=== PATIENT | male | born 1970 | race Caucasian/White ===

== ENCOUNTER 2020-09-04 09:16 | Emergency (ER) | payer MEDICAID, OTHER ==
[~2020-09-04] VITALS: Ht 180.3 cm; Wt 145.1 kg
[2020-09-04 09:43] LABS: Basophils # (auto) 0.1 10 ^3/uL (0-0.2); Basophils % (auto) 0.8 % (0.0-2.0); Eosinophils # (auto) 0.3 10 ^3/uL (0-0.8); Eosinophils % (auto) 3.1 % (0.0-7.0); Hematocrit 42.7 % (41.0-53.0); Hemoglobin 14.1 g/dL (13.5-17.5); Lymphocytes # (auto) 2.8 10 ^3/uL (0.4-5.4); Lymphocytes % (auto) 32.1 % (10.0-50.0); Mean Corpuscular Hemoglobin 27.9 pg (28.0-32.0); Mean Corpuscular Hgb Conc. 33.2 g/dL (32.0-36.0); Mean Corpuscular Volume 84.1 fL (80.0-100.0); Monocytes # (auto) 0.5 10 ^3/uL (0-1.3); Monocytes % (auto) 5.7 % (0.0-12.0); Neutrophils # (auto) 5.1 10 ^3/uL (1.6-8.6); Neutrophils % (auto) 58.3 % (37.0-80.0); Nucleated Red Blood Cells % 0.1 %; Platelet Count (auto) 267 10^3/uL (140-450); Red Blood Cells 5.07 10^6/uL (4.5-5.90); Red Cell Distribution Width 14.6 % (11.8-14.3); White Blood Cell 8.7 10^3/uL (4.4-10.8)
[2020-09-04 10:03] LABS: Albumin 3.9 g/dL (3.4-5.0); Anion Gap 7 (5-15); Blood Urea Nitrogen 14 mg/dL (7-18); Calcium 8.8 mg/dL (8.5-10.1); Carbon Dioxide 26 mmol/L (21-32); Chloride 107 mmol/L (98-107); Glucose 116 mg/dL (74-106); Magnesium 2.3 mg/dL (1.6-2.6); Potassium 3.5 mmol/L (3.5-5.1); Sodium 140 mmol/L (136-145)
[2020-09-04 10:11] LABS: Alanine Aminotransferase 39 U/L (16-61); Alkaline Phosphatase 77 U/L (45-117); Aspartate Aminotransferase 20 U/L (15-37); BUN/Creatinine Ratio 13.6; Bilirubin, Total 0.7 mg/dL (0.2-1.0); GFR African American 98 mL/min; GFR Non-African American 81 mL/min; Total Protein 7.4 g/dL (6.4-8.2)
[2020-09-04 11:58] VITALS: BP 169/101
== END 2020-09-04 12:01 | disposition home or self-care (01) ==
LOC: ER 09:16
DX: R07.89 Other chest pain (principal); E11.9 Type 2 diabetes mellitus without complications; E78.00 Pure hypercholesterolemia, unspecified; I10 Essential (primary) hypertension; Z90.49 Acquired absence of other specified parts of digestive tract
CPT/HCPCS: 36415; 71046; 80053; 83735; 84484; 85025; 93005

== ENCOUNTER 2023-05-12 02:30 | Inpatient (IN) | payer MEDICAID ==
[~2023-05-12] VITALS: Ht 188 cm; Wt 139.0 kg
[2023-05-12 03:35] LABS: Basophils # (auto) 0.1 10 ^3/uL (0-0.2); Basophils % (auto) 0.5 % (0.0-2.0); Eosinophils # (auto) 0.2 10 ^3/uL (0-0.8); Eosinophils % (auto) 1.5 % (0.0-7.0); Hematocrit 39.3 % (41.0-53.0); Hemoglobin 13.2 g/dL (13.5-17.5); Lymphocytes # (auto) 2.2 10 ^3/uL (0.4-5.4); Lymphocytes % (auto) 17.6 % (10.0-50.0); Mean Corpuscular Hemoglobin 28.1 pg (28.0-32.0); Mean Corpuscular Hgb Conc. 33.7 g/dL (32.0-36.0); Mean Corpuscular Volume 83.5 fL (80.0-100.0); Monocytes # (auto) 0.8 10 ^3/uL (0-1.3); Monocytes % (auto) 6.6 % (0.0-12.0); Neutrophils # (auto) 9.2 10 ^3/uL (1.6-8.6); Neutrophils % (auto) 73.8 % (37.0-80.0); Red Cell Distribution Width 14.4 % (11.8-14.3); White Blood Cell 12.4 10^3/uL (4.4-10.8)
[2023-05-12 03:47] LABS: Albumin 3.8 g/dL (3.4-5.0); BUN/Creatinine Ratio 16.8 (10.0-20.0); Calcium 8.8 mg/dL (8.5-10.1); Potassium 3.2 mmol/L (3.5-5.1)
[2023-05-12 03:50] LABS: Bilirubin, Total 0.8 mg/dL (0.2-1.0); Total Protein 7.2 g/dL (6.4-8.2)
[2023-05-12] MEDS ORDERED: TAMSULOSIN HYDROCHLORIDE 0.4 MG CAP PO ONE (05:00)
[2023-05-12] MEDS ORDERED: ONDANSETRON HCL 4 MG/2 ML VIAL IV ONE (05:00)
[2023-05-12] MEDS ORDERED: HYDROmorphone HCL 2 MG/ML VL/or syr IV ONE (05:00)
[2023-05-12] MEDS ORDERED: SODIUM CHLORIDE 0.9% 1,000 ML IV ONE (05:00)
[2023-05-12] MEDS ORDERED: cefTRIAXone 1GM/50ML D5W 50 ML IV ONE (05:00)
[2023-05-12] MEDS ORDERED: OXYCODONE W/ ACETAMINOPHEN 5/325MG TABLET PO ONE (05:30)
[2023-05-12] MEDS ORDERED: ONDANSETRON HCL 4 MG/2 ML VIAL IV PRN (06:30)
[2023-05-12] MEDS ORDERED: ACETAMINOPHEN 325 MG TAB PO PRN (06:30)
[2023-05-12] MEDS ORDERED: MORPHINE SULFATE INJ 2 MG/ml SYRG IV PRN (06:30)
[2023-05-12] MEDS ORDERED: DEXTROSE (50%) 50ML SYRG IV PRN (06:30)
[2023-05-12 08:05] LABS: Urine Bacteria NONE SEEN /hpf (None Seen); Urine Blood 3+ /uL (Negative); Urine Budding Yeast LOADED /hpf (None Seen); Urine Hyaline Cast FEW /lpf (0 - 2); Urine Mucus FEW (None Seen); Urine Specific Gravity 1.019 (1.001-1.035); Urine WBC 14 /hpf (0 - 3)
[2023-05-12] MEDS: InsuLIN REG 1unit/0.01ml Soln (100units/ml) SC SCH ×4 (08:17→23:37)
[2023-05-12] MEDS: ACCU-CHEK COMFORT CURVE STRIP VI SCH ×4 (08:17→23:32)
[2023-05-12] MEDS: PANTOPRAZOLE 40 MG TAB PO SCH (09:44)
[2023-05-12] MEDS: HYDROcodone-ACET 5/325MG TAB PO PRN ×2 (09:44→23:37)
[2023-05-12] MEDS: ATENOLOL 50 MG TAB PO SCH ×2 (09:44→23:33)
[2023-05-12] MEDS ORDERED: LOSARTAN POTASSIUM 50 MG TAB PO SCH (10:00)
[2023-05-12] MEDS ORDERED: POTASSIUM CHL 20 Meq TABLET PO ONE (13:45)
[2023-05-12] MEDS ORDERED: hydrALAZINE HCL 20 MG/ML VL IV PRN (13:45)
[2023-05-12 17:18] LABS: INR 1.03 (0.9-1.15)
[2023-05-12] MEDS: SODIUM CHLORIDE 0.9% 1,000 ML IV SCH ×2 (18:04→23:33)
[2023-05-12] MEDS: TAMSULOSIN HYDROCHLORIDE 0.4 MG CAP PO SCH (18:05)
[2023-05-12 22:00] VITALS: BP 136/92
[2023-05-12] MEDS: ATORVASTATIN 20 MG TAB PO SCH (23:31)
[2023-05-12 23:44] VITALS: BP 136/92
[2023-05-12] MEDS ORDERED: ASPI-325 PO (23:56)
[2023-05-12] MEDS ORDERED: METF-372 PO (23:56)
[2023-05-12] MEDS ORDERED: SPIR25TA8 PO (23:56)
[2023-05-12] MEDS ORDERED: SEMA4INJ SC (23:56)
[2023-05-12] MEDS ORDERED: AMLO1TAB23 PO (23:56)
[2023-05-12] MEDS ORDERED: GLUC-149 XX (23:56)
[2023-05-12] MEDS ORDERED: HYDR25TA5 PO (23:56)
[2023-05-12] MEDS ORDERED: ERGO1CAP12 PO (23:56)
[2023-05-12] MEDS ORDERED: ATOR40TA52 PO (23:56)
[2023-05-12] MEDS ORDERED: ATEN50TA PO (23:56)
[2023-05-12] MEDS ORDERED: TAMS0.4C36 PO (23:56)
[2023-05-12] MEDS ORDERED: LOSA50TA46 PO (23:56)
[2023-05-13 05:00] VITALS: BP 106/66
[2023-05-13 06:11] LABS: Potassium 3.4 mmol/L (3.5-5.1)
[2023-05-13 06:16] LABS: Basophils # (auto) 0 10 ^3/uL (0-0.2); Basophils % (auto) 0.5 % (0.0-2.0); Eosinophils # (auto) 0.2 10 ^3/uL (0-0.8); Eosinophils % (auto) 1.8 % (0.0-7.0); Hematocrit 35.6 % (41.0-53.0); Hemoglobin 11.9 g/dL (13.5-17.5); Lymphocytes # (auto) 2.2 10 ^3/uL (0.4-5.4); Lymphocytes % (auto) 24.5 % (10.0-50.0); Mean Corpuscular Hemoglobin 28.1 pg (28.0-32.0); Mean Corpuscular Hgb Conc. 33.5 g/dL (32.0-36.0); Mean Corpuscular Volume 83.9 fL (80.0-100.0); Monocytes # (auto) 0.8 10 ^3/uL (0-1.3); Monocytes % (auto) 8.7 % (0.0-12.0); Neutrophils # (auto) 5.8 10 ^3/uL (1.6-8.6); Neutrophils % (auto) 64.5 % (37.0-80.0); Nucleated Red Blood Cells % 0.1 %; Red Blood Cells 4.25 10^6/uL (4.5-5.90); Red Cell Distribution Width 14.7 % (11.8-14.3)
[2023-05-13 06:18] LABS: Albumin 3.2 g/dL (3.4-5.0); BUN/Creatinine Ratio 12.6 (10.0-20.0); Calcium 7.9 mg/dL (8.5-10.1)
[2023-05-13 06:37] LABS: Bilirubin, Total 0.9 mg/dL (0.2-1.0); Total Protein 6.3 g/dL (6.4-8.2)
[2023-05-13] MEDS: InsuLIN REG 1unit/0.01ml Soln (100units/ml) SC SCH ×4 (06:47→22:00)
[2023-05-13] MEDS: ACCU-CHEK COMFORT CURVE STRIP VI SCH ×4 (06:47→22:12)
[2023-05-13] MEDS: SODIUM CHLORIDE 0.9% 1,000 ML IV SCH ×3 (06:47→22:13)
[2023-05-13 08:00] VITALS: BP 128/85
[2023-05-13] MEDS: PANTOPRAZOLE 40 MG TAB PO SCH (09:16)
[2023-05-13] MEDS: cefTRIAXone 1GM/50ML D5W 50 ML IV SCH (09:18)
[2023-05-13] MEDS: ATENOLOL 50 MG TAB PO SCH ×2 (09:19→22:12)
[2023-05-13 12:00] VITALS: BP 126/85
[2023-05-13] MEDS: FLUCONAZOLE 200MG/100ML 100 ML IV SCH (12:00)
[2023-05-13 16:00] VITALS: BP 114/78
[2023-05-13] MEDS: TAMSULOSIN HYDROCHLORIDE 0.4 MG CAP PO SCH (17:38)
[2023-05-13] MEDS: ATORVASTATIN 20 MG TAB PO SCH (22:11)
[2023-05-13 22:30] VITALS: BP 141/89
[2023-05-14] VITALS (7 sets, daily range): BP systolic 114–142; BP diastolic 71–93
[2023-05-14 05:54] LABS: Basophils # (auto) 0.1 10 ^3/uL (0-0.2); Basophils % (auto) 0.8 % (0.0-2.0); Eosinophils # (auto) 0.2 10 ^3/uL (0-0.8); Eosinophils % (auto) 2.8 % (0.0-7.0); Hematocrit 37.1 % (41.0-53.0); Hemoglobin 12.4 g/dL (13.5-17.5); Lymphocytes # (auto) 2.3 10 ^3/uL (0.4-5.4); Lymphocytes % (auto) 29.8 % (10.0-50.0); Mean Corpuscular Hemoglobin 28.4 pg (28.0-32.0); Mean Corpuscular Hgb Conc. 33.5 g/dL (32.0-36.0); Mean Corpuscular Volume 84.9 fL (80.0-100.0); Monocytes # (auto) 0.6 10 ^3/uL (0-1.3); Monocytes % (auto) 7.6 % (0.0-12.0); Neutrophils # (auto) 4.5 10 ^3/uL (1.6-8.6); Nucleated Red Blood Cells % 0.1 %; Red Blood Cells 4.38 10^6/uL (4.5-5.90); Red Cell Distribution Width 14.8 % (11.8-14.3); White Blood Cell 7.6 10^3/uL (4.4-10.8)
[2023-05-14 06:05] LABS: Calcium 8.3 mg/dL (8.5-10.1); Potassium 3.3 mmol/L (3.5-5.1)
[2023-05-14] MEDS: ACCU-CHEK COMFORT CURVE STRIP VI SCH ×4 (06:08→21:18)
[2023-05-14] MEDS: SODIUM CHLORIDE 0.9% 1,000 ML IV SCH ×3 (06:08→17:59)
[2023-05-14] MEDS: InsuLIN REG 1unit/0.01ml Soln (100units/ml) SC SCH ×4 (06:09→21:18)
[2023-05-14] MEDS: cefTRIAXone 1GM/50ML D5W 50 ML IV SCH (09:40)
[2023-05-14] MEDS: PANTOPRAZOLE 40 MG TAB PO SCH (09:43)
[2023-05-14] MEDS: ATENOLOL 50 MG TAB PO SCH ×2 (09:43→21:11)
[2023-05-14] MEDS: FLUCONAZOLE 200MG/100ML 100 ML IV SCH (10:00)
[2023-05-14] MEDS ORDERED: LIDOCAINE 2%HCL (LOCAL ANESTH.) INJ 20ML MDV ONE (11:26)
[2023-05-14] MEDS ORDERED: IODIXANOL 320MG/ML 100ML BTL IV ONE (11:26)
[2023-05-14] MEDS ORDERED: fentaNYL CITRATE 100 MCG/2 ML VL ONE (11:40)
[2023-05-14] MEDS ORDERED: MIDAZOLAM HCL 2MG/2ML 2ml VIAL (1mg/ml) ONE (11:40)
[2023-05-14] MEDS ORDERED: POTASSIUM CHL 20 Meq TABLET PO ONE (16:30)
[2023-05-14] MEDS: TAMSULOSIN HYDROCHLORIDE 0.4 MG CAP PO SCH (18:00)
[2023-05-14] MEDS: ATORVASTATIN 20 MG TAB PO SCH (21:10)
[2023-05-15 05:00] VITALS: BP 136/93
[2023-05-15] MEDS: InsuLIN REG 1unit/0.01ml Soln (100units/ml) SC SCH ×4 (07:00→22:18)
[2023-05-15] MEDS: ACCU-CHEK COMFORT CURVE STRIP VI SCH ×4 (07:14→22:18)
[2023-05-15 09:00] VITALS: BP 140/95
[2023-05-15] MEDS: cefTRIAXone 1GM/50ML D5W 50 ML IV SCH (09:09)
[2023-05-15] MEDS: ATENOLOL 50 MG TAB PO SCH ×2 (09:09→22:21)
[2023-05-15] MEDS: PANTOPRAZOLE 40 MG TAB PO SCH (09:09)
[2023-05-15] MEDS: FLUCONAZOLE 200MG/100ML 100 ML IV SCH (11:10)
[2023-05-15] MEDS: SODIUM CHLORIDE 0.9% 1,000 ML IV SCH (11:12)
[2023-05-15] MEDS ORDERED: amLODIPine BESYLATE 5 MG TAB PO ONE (11:45)
[2023-05-15] MEDS ORDERED: SPIRONOLACTONE 25 MG TAB PO ONE (11:45)
[2023-05-15] MEDS ORDERED: HCTZ 25 MG TAB PO ONE (11:45)
[2023-05-15 13:00] VITALS: BP 148/93
[2023-05-15 17:01] VITALS: BP 133/87
[2023-05-15] MEDS: TAMSULOSIN HYDROCHLORIDE 0.4 MG CAP PO SCH (18:21)
[2023-05-15 22:00] VITALS: BP 152/96
[2023-05-15] MEDS: ATORVASTATIN 20 MG TAB PO SCH (22:21)
[2023-05-16 05:00] VITALS: BP 135/91
[2023-05-16] MEDS: ACCU-CHEK COMFORT CURVE STRIP VI SCH ×4 (06:06→21:45)
[2023-05-16] MEDS: InsuLIN REG 1unit/0.01ml Soln (100units/ml) SC SCH ×4 (06:07→21:45)
[2023-05-16 06:33] LABS: Potassium 3.6 mmol/L (3.5-5.1)
[2023-05-16 06:40] LABS: BUN/Creatinine Ratio 14.1 (10.0-20.0); Calcium 9.1 mg/dL (8.5-10.1)
[2023-05-16] MEDS: PANTOPRAZOLE 40 MG TAB PO SCH (08:58)
[2023-05-16] MEDS: HCTZ 25 MG TAB PO SCH (08:58)
[2023-05-16] MEDS: SPIRONOLACTONE 25 MG TAB PO SCH (08:58)
[2023-05-16] MEDS: ATENOLOL 50 MG TAB PO SCH ×2 (08:59→21:43)
[2023-05-16] MEDS: amLODIPine BESYLATE 5 MG TAB PO SCH (08:59)
[2023-05-16 09:00] VITALS: BP 129/78
[2023-05-16] MEDS: cefTRIAXone 1GM/50ML D5W 50 ML IV SCH (09:00)
[2023-05-16] MEDS: FLUCONAZOLE 200MG/100ML 100 ML IV SCH (10:00)
[2023-05-16 13:00] VITALS: BP 146/97
[2023-05-16 17:00] VITALS: BP 141/90
[2023-05-16] MEDS: TAMSULOSIN HYDROCHLORIDE 0.4 MG CAP PO SCH (17:16)
[2023-05-16] MEDS: ATORVASTATIN 20 MG TAB PO SCH (21:42)
[2023-05-16 22:00] VITALS: BP 140/90
[2023-05-16 22:14] LABS: Urine Bacteria FEW /hpf (None Seen); Urine Blood 3+ /uL (Negative); Urine Specific Gravity 1.006 (1.001-1.035); Urine WBC 1 /hpf (0 - 3)
[2023-05-17 05:00] VITALS: BP 130/88
[2023-05-17] MEDS: ACCU-CHEK COMFORT CURVE STRIP VI SCH ×4 (05:39→22:06)
[2023-05-17] MEDS: InsuLIN REG 1unit/0.01ml Soln (100units/ml) SC SCH ×4 (05:39→22:09)
[2023-05-17 05:50] LABS: INR 1.03 (0.9-1.15); Partial Thromboplastin Time 23.5 SEC (24.5-34.5)
[2023-05-17] MEDS: ATENOLOL 50 MG TAB PO SCH ×2 (08:50→22:21)
[2023-05-17] MEDS: amLODIPine BESYLATE 5 MG TAB PO SCH (08:50)
[2023-05-17] MEDS: SPIRONOLACTONE 25 MG TAB PO SCH (08:50)
[2023-05-17] MEDS: PANTOPRAZOLE 40 MG TAB PO SCH (08:50)
[2023-05-17] MEDS: HCTZ 25 MG TAB PO SCH (08:51)
[2023-05-17] MEDS: cefTRIAXone 1GM/50ML D5W 50 ML IV SCH (08:51)
[2023-05-17 09:00] VITALS: BP 149/96
[2023-05-17] MEDS: FLUCONAZOLE 200MG/100ML 100 ML IV SCH (12:06)
[2023-05-17] MEDS ORDERED: IOHEXOL 300 MG/ML 100ML BOTTLE IJ ONE (12:56)
[2023-05-17 13:00] VITALS: BP 143/98
[2023-05-17] MEDS ORDERED: SUGAMMADEX 200mg/2ml Vial (100MG/ML) IV ONE (15:10)
[2023-05-17] MEDS ORDERED: ROCURONIUM 10MG/ML 10ML VIAL IV ONE (15:12)
[2023-05-17] MEDS ORDERED: GLYCOPYRROLATE 0.2 MG/ML 1ML VIAL ONE (15:12)
[2023-05-17] MEDS ORDERED: MIDAZOLAM HCL 2MG/2ML 2ml VIAL (1mg/ml) ONE (15:12)
[2023-05-17] MEDS ORDERED: LIDOCAINE 2% (LOCAL ANESTH.) PF 5ml SDV ONE (15:12)
[2023-05-17] MEDS ORDERED: ONDANSETRON HCL 4 MG/2 ML VIAL ONE (15:12)
[2023-05-17] MEDS ORDERED: fentaNYL CITRATE 100 MCG/2 ML VL ONE (15:12)
[2023-05-17] MEDS ORDERED: DexAMETHasone SOD PHOS 10MG/1ML VIAL INJ ONE (15:12)
[2023-05-17] MEDS ORDERED: KETOROLAC TROMETH 30 MG/ML 1ML VIAL ONE (15:12)
[2023-05-17] MEDS ORDERED: HYDROmorphone HCL 2 MG/ML VL/or syr ONE (15:12)
[2023-05-17] MEDS ORDERED: PROPOFOL 10 MG/ML 20 ML IV ONE (15:12)
[2023-05-17] MEDS ORDERED: ACCU-CHEK COMFORT CURVE STRIP VI ONE (17:00)
[2023-05-17] MEDS ORDERED: ONDANSETRON HCL 4 MG/2 ML VIAL IV PRN (17:00)
[2023-05-17] MEDS ORDERED: HYDROmorphone HCL 2 MG/ML VL/or syr IV PRN (17:00)
[2023-05-17] MEDS: TAMSULOSIN HYDROCHLORIDE 0.4 MG CAP PO SCH (18:21)
[2023-05-17 22:00] VITALS: BP 122/77
[2023-05-17] MEDS: ATORVASTATIN 20 MG TAB PO SCH (22:20)
[2023-05-18 05:00] VITALS: BP 123/71
[2023-05-18] MEDS: ACCU-CHEK COMFORT CURVE STRIP VI SCH ×2 (06:22→11:30)
[2023-05-18] MEDS: InsuLIN REG 1unit/0.01ml Soln (100units/ml) SC SCH ×2 (06:25→11:30)
[2023-05-18 08:00] VITALS: BP 131/77
[2023-05-18 08:10] LABS: Calcium 8.9 mg/dL (8.5-10.1); Potassium 3.8 mmol/L (3.5-5.1)
[2023-05-18] MEDS: cefTRIAXone 1GM/50ML D5W 50 ML IV SCH (09:00)
[2023-05-18] MEDS: PANTOPRAZOLE 40 MG TAB PO SCH (10:00)
[2023-05-18] MEDS: FLUCONAZOLE 200MG/100ML 100 ML IV SCH (10:00)
[2023-05-18] MEDS: HCTZ 25 MG TAB PO SCH (10:00)
[2023-05-18] MEDS: SPIRONOLACTONE 25 MG TAB PO SCH (10:00)
[2023-05-18] MEDS: ATENOLOL 50 MG TAB PO SCH (10:00)
[2023-05-18] MEDS: amLODIPine BESYLATE 5 MG TAB PO SCH (10:00)
[2023-05-18] MEDS ORDERED: CIPR-273 PO (10:39)
[2023-05-18 11:37] VITALS: BP 122/77
== END 2023-05-18 12:30 | disposition home or self-care (01) | DRG 446 ==
LOC: ER 02:30 → OVERFLOW 06:31 → CENTRAL 21:02
PROVIDERS: ADMIT Nurse Practitioner; ATTEND Internal Medicine Geriatric Medicine
PROC: 0T903ZZ Drainage of Right Kidney, Percutaneous Approach (ICD-10-PCS; 2023-05-14)
PROC: 0TC68ZZ Extirpation of Matter from Right Ureter, Via Natural or Artificial Opening Endoscopic (ICD-10-PCS; 2023-05-17)
PROC: 0T768DZ Dilation of Right Ureter with Intraluminal Device, Via Natural or Artificial Opening Endoscopic (ICD-10-PCS; 2023-05-17)
PROC: 0TP5X0Z Removal of Drainage Device from Kidney, External Approach (ICD-10-PCS; 2023-05-17)
PROC: BT1D1ZZ Fluoroscopy of Right Kidney, Ureter and Bladder using Low Osmolar Contrast (ICD-10-PCS; principal; 2023-05-17 15:16)
DX: N13.6 Pyonephrosis (principal); N17.0 Acute kidney failure with tubular necrosis; E44.1 Mild protein-calorie malnutrition; R65.10 Systemic inflammatory response syndrome (SIRS) of non-infectious origin without acute organ dysfunction; E04.1 Nontoxic single thyroid nodule; E11.9 Type 2 diabetes mellitus without complications; E66.9 Obesity, unspecified; E78.5 Hyperlipidemia, unspecified; I10 Essential (primary) hypertension; E87.6 Hypokalemia; N20.2 Calculus of kidney with calculus of ureter; Z68.39 Body mass index [BMI] 39.0-39.9, adult; Z90.49 Acquired absence of other specified parts of digestive tract
CPT/HCPCS: 36415; 71045; 71250; 74018; 74176; 74425; 76000; 76536; 76775; 76942; 80048; 80053; 81001; 82306; 82962; 83690; 83970; 84443; 85025; 85610; 85730; 86850; 86900; 86901; 96365; 96375; 96376; 99152; G0378; J0696; J1100; J1450; J1815; J1885; J2001; J2250; J2405; J2704; Q9967

== ENCOUNTER 2025-03-22 06:09 | Inpatient (IN) | payer MEDICAID ==
[~2025-03-22] VITALS: Ht 180.3 cm; Wt 127.8 kg
[~2025-03-22 06:09] MED LIST: AMLO1TAB23 PO; ASPI-325 PO; ATEN50TA PO; ATOR40TA52 PO; CIPR-273 PO; ERGO1CAP12 PO; GLUC-149 XX; HYDR25TA5 PO; LOSA-534 PO; METF-372 PO; SEMA4INJ SC; SPIR25TA8 PO; TAMS0.4C39 PO
--- NOTE | 2025-03-22 06:49 | ED.PDOC ---
History of Present Illness HPI Comments 54-year-old male presents to the ER with prior history of diabetes, high lipids, hypertension, kidney stones; surgical history of cholecystectomy and the chief complaint of flank pain. Patient reports on having right lower quadrant pain which radiates to the right flank since 10:30 p.m. last night, associated with N/V. Patient notes that he recently saw Dr. Li(30 days ago), with them stating "your kidney stone free". Denies chills, fever, /D, SOB, CP. No other associated symptoms, modifiers, recent injuries or sick contacts present at this time. Chief Complaint: Flank Pain Time Seen by MD: 06:35 Reviewed Notes: Nurses Notes, Medications, Allergies Allergies: Coded Allergies: Penicillins (Verified Allergy, Unknown, 05/17/23) Per patient Home Meds Active Scripts Ciprofloxacin Hcl (Cipro) 250 Mg Tab, 250 MG PO BID, #10 TAB Prov:LICO WAITE MD 05/18/23 Reported Medications Glucose Blood (Freestyle Lite Test Strip) Lite Jess, XX 05/12/23 Metformin Hydrochloride (Metformin Hcl) 1,000 Mg Tab, 1 TAB PO QDAC 05/12/23 Aspirin (Aspirin Low Dose) 81 Mg Tab, 1 TAB PO DAILY 05/12/23 Ergocalciferol (Vitamin D) 50,000 Unit Cap, 1 CAP PO QWEEKLY 05/12/23 Atorvastatin Calcium (ATORVASTATIN CALCIUM) 40 Mg Tab, 1 TAB PO DAILY 05/12/23 Hctz (Hydrochlorothiazide) 25 Mg Tab, 1 TAB PO DAILY 05/12/23 Spironolactone (Spironolactone) 25 Mg Tab, 1 TAB PO DAILY 05/12/23 Losartan Potassium (Losartan Potassium) 50 Mg Tab, 1 TAB PO BID 05/12/23 Amlodipine Besylate (Amlodipine Besylate) 10 Mg Tab, 1 TAB PO DAILY 05/12/23 Semaglutide (Ozempic) 4 Mg/3 Ml Inj, SC QWEEKLY 05/12/23 Atenolol (Atenolol) 50 Mg Tab, 1 TAB PO BID 05/12/23 Tamsulosin Hcl (Tamsulosin Hcl) 0.4 Mg Cap, 1 CAP PO DAILY 05/12/23 Information Source: Patient Mode of Arrival: Ambulatory Severity: Moderate Timing: Hours Duration: Since onset, Hours Prehospital treatment: None Past Medical History PAST MEDICAL HISTORY: DM, High Lipids, HTN, Kidney Stones Surgical History: Cholecystectomy Family History Family History: Reviewed,noncontributory to illness, Unknown Social History Smoker: Non-Smoker Alcohol: Unknown Drugs: Denies Drug Use Lives In: Home Constitutional: denies: chills, diaphoresis, fatigue, fever, malaise, sweats, weakness, others EENTM: denies: blurred vision, double vision, ear bleeding, ear discharge, ear drainage, ear pain, ear ringing, eye pain, eye redness, hearing loss, mouth pain, mouth swelling, nasal discharge, nose bleeding, nose congestion, nose pain, photophobia, tearing, throat pain, throat swelling, voice changes, others Respiratory: denies: cough, hemoptysis, orthopnea, SOB at rest, shortness of breath, SOB with excertion, stridor, wheezing, others Cardiovascular: denies: chest pain, dizzy spells, diaphoresis, Dyspnea on exertion, edema, irregular heart beat, left arm pain, lightheadedness, palpitations, PND, syncope, others Gastrointestinal: reports: abdominal pain, nausea, vomiting; denies: abdomen distended, blood streaked bowels, constipated, diarrhea, dysphagia, difficulty swallowing, hematemesis, melena, poor appetite, poor fluid intake, rectal bleeding, rectal pain, others Genitourinary: reports: flank pain; denies: burning, dysuria, frequency, hematuria, incontinence, penile discharge, penile sore, pain, testicle pain, testicle swelling, urgency, others Neurological: denies: dizziness, fainting, headache, left sided numbness, left sided weakness, numbness, paresthesia, pre-existing deficit, right sided numbness, right sided weakness, seizure, speech problems, tingling, tremors, weakness, others Musculoskeletal: denies: back pain, gout, joint pain, joint swelling, muscle pain, muscle stiffness, neck pain, others Integumetry: denies: bruises, change in color, change in hair/nails, dryness, laceration, lesions, lumps, rash, wounds, others Allergic/Immunocompromised: denies: Difficulty Healing, Frequent Infections, Hives, Itching, others Hematologic/Lymphatic: denies: anemia, blood clots, easy bleeding, easy bruising, swollen glands, others Endocrine: denies: excessive hunger, excessive sweating, excessive thirst, excessive urination, flushing, intolerance to cold, intolerance to heat, unexplained weight gain, unexplained weight loss, others Psychiatric: denies: anxiety, bipolar disorder, depression, hopeless, panic disorder, schizophrenia, sleepless, suicidal, others All Other Systems: Reviewed and Negative Physical Exam General Appearance: No Apparent Distress, Normal HEENT: Normal ENT Inspection, Pharynx Normal, TMs Normal Neck: Full Range of Motion, Non-Tender, Normal, Normal Inspection Respiratory: Chest Non-Tender, Lungs Clear, No Accessory Muscle Use, No Respiratory Distress, Normal Breath Sounds Cardiovascular: No Edema, No JVD, No Murmur, No Gallop, Normal Peripheral Pulses, Regular Rate/Rhythm Breast Exam: Deferred Gastrointestinal: No Organomegaly, Non Tender, No Pulsatile Mass, Normal Bowel Sounds, Soft Genitalia: Deferred Pelvic: Deferred Rectal: Deferred Extremities: No calf tenderness, Normal capillary refill, Normal inspection, Normal range of motion, Non-tender, No pedal edema Musculoskeletal : Apperance: Normal Neurologic: Alert, medical coordinator pesticide use II-XII nml as Tested, No Motor Deficits, Normal Affect, Normal Mood, No Sensory Deficits Cerebellar Function: Normal Reflexes: Normal Skin: Dry, Normal Color, Warm Lymphatic: No Adenopathy Was a procedure done? Was a procedure done?: No Differential Dx Considerations may include: Acute cystitis, pyelonephritis, urolithiasis, renal colic X-Ray, Labs, Meds, VS Vital Signs Date Time Temp Pulse Resp B/P (MAP) Pulse Ox O2 Delivery O2 Flow Rate FiO2 03/22/25 08:47 97.9 03/22/25 07:47 97.6 03/22/25 07:35 99 16 95 Room Air 03/22/25 07:35 97.6 99 16 145/94 (111) 95 97.6 03/22/25 06:24 98.2 92 16 149/101 (117) 95 98.2 Lab Test 03/22/25 06:56 Range/Units White Blood Count 11.3 H 4.4-10.8 10^3/uL Red Blood Count 5.27 4.5-5.90 10^6/uL Hemoglobin 14.9 13.5-17.5 g/dL Hematocrit 43.9 41.0-53.0 % Mean Corpuscular Volume 83.3 80.0-100.0 fL Mean Corpuscular Hemoglobin 28.2 28.0-32.0 pg Mean Corpuscular Hemoglobin Concent 33.9 32.0-36.0 g/dL Red Cell Distribution Width 14.2 11.8-14.3 % Platelet Count 308 140-450 10^3/uL Mean Platelet Volume 7.9 6.9-10.8 fL Neutrophils (%) (Auto) 73.3 37.0-80.0 % Lymphocytes (%) (Auto) 16.6 10.0-50.0 % Monocytes (%) (Auto) 7.2 0.0-12.0 % Eosinophils (%) (Auto) 2.5 0.0-7.0 % Basophils (%) (Auto) 0.4 0.0-2.0 % Neutrophils # (Auto) 8.3 1.6-8.6 10 ^3/uL Lymphocytes # (Auto) 1.9 0.4-5.4 10 ^3/uL Monocytes # (Auto) 0.8 0-1.3 10 ^3/uL Eosinophils # (Auto) 0.3 0-0.8 10 ^3/uL Basophils # (Auto) 0 0-0.2 10 ^3/uL Nucleated Red Blood Cells 0.0 % Sodium Level 138 136-145 mmol/L Potassium Level 3.4 L 3.5-5.1 mmol/L Chloride Level 102 98-107 mmol/L Carbon Dioxide Level 22 20-31 mmol/L Anion Gap 14 5-15 Blood Urea Nitrogen 18 9-23 mg/dL Creatinine 1.23 0.700-1.30 mg/dL Glomerular Filtration Rate Calc 69 >90 mL/min BUN/Creatinine Ratio 14.6 10.0-20.0 Serum Glucose 163 H 74-106 mg/dL Calcium Level 9.7 8.7-10.4 mg/dL Current Medications Medications (Trade) Dose Ordered Sig/Anni Route Start Time Stop Time Status Last Admin Ondansetron HCl (Zofran) 4 mg ONCE ONCE IV 03/22/25 06:45 03/22/25 06:46 DC 03/22/25 07:58 Acetaminophen (Tylenol Tablet) 650 mg ONCE ONCE PO 03/22/25 06:45 03/22/25 06:46 DC 03/22/25 07:47 Ketorolac Tromethamine (Toradol Injection) 15 mg ONCE ONCE IV 03/22/25 06:45 03/22/25 06:46 DC 03/22/25 07:58 Sodium Chloride 1,000 ml @ 1,000 mls/hr Q1H ONCE IV 03/22/25 06:45 03/22/25 07:44 DC 03/22/25 07:57 Tamsulosin HCl (Flomax) 0.4 mg ONCE ONCE PO 03/22/25 06:45 03/22/25 06:46 DC 03/22/25 07:47 [place] [address] Ph: [phone] DIAGNOSTIC IMAGING Diagnostic Imaging Report : [id number] Signed PATIENT: JESSI RUSSO ACCT: [id number] UNIT: [id number] : 1970 LOC: ER ROOM / BED: / AGE / SEX: 54 / M ADM STATUS: REG ER SERVICE ORDERING PHYSICIAN: YAMINI STOCKTON MD PROCEDURE(s): ABPL - CT AB PEL WO CON-NO ORAL OR IV REASON: right flank pain ORDER NUMBER(s): [id number], ACCESSION NUMBER(s): [id number] EXAM: CT Abdomen and Pelvis Without Intravenous Contrast CLINICAL INDICATION: right flank pain TECHNIQUE: Axial computed tomography images of the abdomen and pelvis without intravenous contrast. This CT exam was performed using one or more of the following dose reduction techniques: automated exposure control, adjustment of the mA and/or kV according to patient size, and/or use of iterative reconstruction technique. CONTRAST: RADIATION DOSE: CTDIvol = 26.18 mGy, DLP = 1413.36 mGy-cm COMPARISON: CT CHST AB PEL WO CON-NO IV/ORAL on DOS: 05/12/23 FINDINGS: LUNG BASES: Unremarkable. No mass. No consolidation. MEDIASTINUM: Small esophageal hiatal hernia. ABDOMEN: LIVER: Fatty infiltration of the liver. GALLBLADDER AND BILE DUCTS: Cholecystectomy. No ductal dilation. PANCREAS: Unremarkable. No ductal dilation. SPLEEN: Splenic cysts. ADRENALS: Unremarkable. No mass. KIDNEYS AND URETERS: 4 mm obstructing calculus at the right mid ureter resulting in moderate hydroureteronephrosis. Punctate left nephrolithiasis with out hydronephrosis. STOMACH AND BOWEL: Unremarkable. No obstruction. No mucosal thickening. PELVIS: APPENDIX: No findings to suggest acute appendicitis. BLADDER: Unremarkable. No stones. REPRODUCTIVE: Unremarkable as visualized. ABDOMEN and PELVIS: INTRAPERITONEAL SPACE: Unremarkable. No free air. No significant fluid collection. BONES/JOINTS: No acute fracture. No dislocation. SOFT TISSUES: Inguinal hernias, bilaterally. VASCULATURE: Unremarkable. No abdominal aortic aneurysm. LYMPH NODES: Unremarkable. No enlarged lymph nodes. OTHER FINDINGS: . . IMPRESSION: 1. 4 mm obstructing calculus at the right mid ureter resulting in moderate hydroureteronephrosis. 2. Small esophageal hiatal hernia. 3. Punctate left nephrolithiasis without hydronephrosis. 4. Inguinal hernias, bilaterally. Time of 1ST Reevaluation: 07:05 Reevaluation 1ST: Unchanged Patient Education/Counseling: Diagnosis, Treatment, Prognosis Family Education/Counseling: No Family Present Departure 1 Departure Time of Disposition: 08:59 (Patient presented with abdominal pain that was concerning for possible appendicits, gastritis, cholecystitis, colitis, gastroenteritis, sbo, or orther possible surgical emergency. Data: 1. I ordered and reviewed the result of at least 3 labs including a CBC, BMP, and Urinalysis. 2. I independently interpreted the following tests: CT Abdoment and Pelvis is concerning for renal colic.Risk:This patient has a high risk of morbidity due to further diagnostic testing or treatment and may suffer from an acute abdominal process disorder. Workup reveals ureteral colic and patient should be admitted for further workup. and possible expert consultation. ) Impression: Primary Impression: Renal colic on right side Additional Impression: Intractable abdominal pain Disposition: 09 ADMITTED INPATIENT Admit to: Med Surg Condition: Serious Critical Care Note Critical Care Time?: Yes Critical care comment: Intractable abdominal pain Authorized and Performed by: Yamini Stockton MD Total critical care time: Approximately 37 minutes Due to a high probability of clinically significant, life threatening deterioration, the patient required my highest level of preparedness to intervene emergently and I personally spent this critical care time directly and personally managing the patient. This critical care time included obtaining a history; examining the patient; pulse oximetry; ordering and review of studies; arranging urgent treatment with development of a management plan; evaluation of patient's response to treatment; frequent reassessment; and, discussions with other providers. This critical care time was performed to assess and manage the high probability of imminent, life-threatening deterioration that could result in multi-organ failure. It was exclusive of separately billable procedures and treating other patients and teaching time. Please see my other sections and the rest of the note for further information on patient assessment and treatment. Stability Stability form required: No I personally scribed for YAMINI STOCKTON MD ([email or web address]) on 03/22/25 at 06:48. Electronically submitted by Petar Sadler ([employer]). I personally scribed for YAMINI STOCKTON MD ([email or web address]) on 03/22/25 at 08:21. Electronically submitted by Petar Sadler ([employer]). YAMINI STOCKTON MD March 22, 2025 06:48
[2025-03-22 07:06] LABS: Basophils # (auto) 0 10 ^3/uL (0-0.2); Basophils % (auto) 0.4 % (0.0-2.0); Eosinophils # (auto) 0.3 10 ^3/uL (0-0.8); Eosinophils % (auto) 2.5 % (0.0-7.0); Hematocrit 43.9 % (41.0-53.0); Hemoglobin 14.9 g/dL (13.5-17.5); Lymphocytes # (auto) 1.9 10 ^3/uL (0.4-5.4); Lymphocytes % (auto) 16.6 % (10.0-50.0); Mean Corpuscular Hemoglobin 28.2 pg (28.0-32.0); Mean Corpuscular Hgb Conc. 33.9 g/dL (32.0-36.0); Mean Corpuscular Volume 83.3 fL (80.0-100.0); Monocytes # (auto) 0.8 10 ^3/uL (0-1.3); Monocytes % (auto) 7.2 % (0.0-12.0); Neutrophils # (auto) 8.3 10 ^3/uL (1.6-8.6); Neutrophils % (auto) 73.3 % (37.0-80.0); Platelet Count (auto) 308 10^3/uL (140-450); Red Blood Cells 5.27 10^6/uL (4.5-5.90); Red Cell Distribution Width 14.2 % (11.8-14.3); White Blood Cell 11.3 10^3/uL (4.4-10.8)
[2025-03-22 07:22] LABS: Chloride 102 mmol/L (98-107); Sodium 138 mmol/L (136-145)
[2025-03-22 07:23] LABS: Anion Gap 14 (5-15); Calcium 9.7 mg/dL (8.7-10.4); Carbon Dioxide 22 mmol/L (20-31); Potassium 3.4 mmol/L (3.5-5.1)
[2025-03-22 07:28] LABS: BUN/Creatinine Ratio 14.6 (10.0-20.0); Blood Urea Nitrogen 18 mg/dL (9-23)
[2025-03-22 07:30] LABS: Glucose 163 mg/dL (74-106)
[2025-03-22] MEDS: ACETAMINOPHEN 325 MG TAB PO ONE (07:47)
[2025-03-22] MEDS: TAMSULOSIN HYDROCHLORIDE 0.4 MG CAP PO ONE (07:47)
[2025-03-22] MEDS: SODIUM CHLORIDE 0.9% 1,000 ML IV ONE (07:57)
[2025-03-22] MEDS: KETOROLAC TROMETH 30 MG/ML 1ML VIAL IV ONE (07:58)
[2025-03-22] MEDS: ONDANSETRON HCL 4 MG/2 ML VIAL IV ONE (07:58)
--- NOTE | 2025-03-22 07:59 | DVH ---
EXAM: CT Abdomen and Pelvis Without Intravenous Contrast CLINICAL INDICATION: right flank pain TECHNIQUE: Axial computed tomography images of the abdomen and pelvis without intravenous contrast. This CT exam was performed using one or more of the following dose reduction techniques: automated exposure control, adjustment of the mA and/or kV according to patient size, and/or use of iterative r econstruction technique. CONTRAST: RADIATION DOSE: CTDIvol = 26.18 mGy, DLP = 1413.36 mGy-cm COMPARISON: CT CHST AB PEL WO CON-NO IV/ORAL on DOS: 05/12/23 FINDINGS: LUNG BASES: Unremarkable. No mass. No consolidation. MEDIASTINUM: Small esophageal hiatal hernia. ABDOMEN: LIVER: Fatty infiltration of the liver. GALLBLADDER AND BILE DUCTS: Cholecystectomy. No ductal dilation. PANCREAS: Unremarkable. No ductal dilation. SPLEEN: Splenic cysts. ADRENALS: Unremarkable. No mass. KIDNEYS AND URETERS: 4 mm obstructing calculus at the right mid ureter resulting in moderate hydrou reteronephrosis. Punctate left nephrolithiasis without hydronephrosis. STOMACH AND BOWEL: Unremarkable. No obstruction. No mucosal thickening. PELVIS: APPENDIX: No findings to suggest acute appendicitis. BLADDER: Unremarkable. No stones. REPRODUCTIVE: Unremarkable as visualized. ABDOMEN and PELVIS: INTRAPERITONEAL SPACE: Unremarkable. No free air. No significant fluid collection. BONES/JOINTS: No acute fracture. No dislocation. SOFT TISSUES: Inguinal hernias, bilaterally. VASCULATURE: Unremarkable. No abdominal aortic aneurysm. LYMPH NODES: Unremarkable. No enlarged lymph nodes. OTHER FINDINGS: . . IMPRESSION: 1. 4 mm obstructing calculus at the right mid ureter resulting in moderate hydroureteronephrosis. 2. Small esophageal hiatal hernia. 3. Punctate left nephrolithiasis without hydronephrosis. 4. Inguinal hernias, bilaterally.
[2025-03-22 09:22] VITALS: BP 127/83; TEMP 97.9
[2025-03-22 09:30] LABS: Urine Bacteria FEW /hpf (None Seen); Urine Blood 3+ /uL (Negative); Urine Clarity Turbid (Clear); Urine Color Yellow (Yellow); Urine Hyaline Cast FEW /lpf (0 - 2); Urine Mucus FEW (None Seen); Urine Protein, UAD 1+ (Negative); Urine Specific Gravity 1.023 (1.001-1.035); Urine Squamous Epithelial Cell FEW /hpf (<5); Urine Urobilinogen Normal (Negative); Urine WBC 7 /HPF (0-3); Urine pH 5.5 (5.0-9.0)
[2025-03-22 10:04] VITALS: PULSE 96; RESP 14; O2SAT 91
[2025-03-22] MEDS ORDERED: ONDANSETRON HCL 4 MG/2 ML VIAL IV PRN (10:45)
[2025-03-22] MEDS ORDERED: HYDROcodone-ACET 5/325MG TAB PO PRN (10:45)
[2025-03-22] MEDS ORDERED: MORPHINE SULFATE INJ 2 MG/ml SYRG IV PRN (10:45)
[2025-03-22] MEDS ORDERED: DEXTROSE (50%) 50ML SYRG IV PRN (10:45)
[2025-03-22] MEDS ORDERED: ACETAMINOPHEN 325 MG TAB PO PRN (10:45)
[2025-03-22] MEDS ORDERED: ERGOCALCIFEROL 50,000 UNIT(1.25MG) CAP PO SCH (11:00)
--- NOTE | 2025-03-22 11:00 | DVHHP2 ---
History of Present Illness Reason for Visit: Right flank pain History of Present Illness Facundo Gomez is a 54-year-old male with past medical history of hypertension, hyperlipidemia, diabetes type 2, nephrolithiasis, cholecystectomy, right cystoscopy with a ureteral stent, right lithotripsy, and right pyeloscopy who presents to the ED with right flank pain since last night at 10:00pm. Upon examination patient currently states that the pain is 0. He also reports that he has been getting quite a bit of kidney stones and sees urologist outpatient. It was recently at the office on February 19, 2025 and states that there was 1 kidney stone that was evaluated as well as to others that he had given to the clinic with pending results. Patient denies any hematuria, dysuria, chest pain, shortness of breath, fever, chills, lightheadedness, weakness, dizziness, abdominal pain, nausea, vomiting, or diarrhea. July is at the bedside. Patient also reports that he ambulates without any DMEs. Cardiovascular: HTN, hyperipidemia Endocrine: Diabetes Past Medical History Nephrolithiasis Past Surgical History: Cholecystectomy, Cystoscopy, Other (Right lithotripsy and right pyeloscopy) Family History: Other (Dad with heart disease) Smoke: No ALCOHOL: none Drugs: None Lives: with Family Domestic Violence: Neg Review of Systems Musculoskeletal: other (Right flank pain) Allergies: Coded Allergies: Penicillins (Verified Allergy, Unknown, 05/17/23) Per patient Medications Current Medications Medications Dose Ordered Sig/Anni Route Start Time Stop Time Status Last Admin Dose Admin Ceftriaxone Sodium 50 ml @ 100 mls/hr DAILY@09 IV 03/23/25 09:00 UNV Sodium Chloride 1,000 ml @ 100 mls/hr Q10H IV 03/22/25 10:45 UNV Diagnostic Test (Pha) 1 strip ACHS 03/22/25 11:30 UNV Insulin Human Regular ACHS SC 03/22/25 11:30 UNV Dextrose 50 ml UD PRN IV 03/22/25 10:45 UNV Acetaminophen/ Hydrocodone Bitart 1 tab Q4HP PRN PO 03/22/25 10:45 UNV Ondansetron HCl 4 mg Q4HP PRN IV 03/22/25 10:45 UNV Acetaminophen 650 mg Q6HP PRN PO 03/22/25 10:45 UNV Morphine Sulfate 2 mg Q4HPRN PRN IV 03/22/25 10:45 UNV Exam Vital Signs Vital Signs Date Time Temp Pulse Resp B/P (MAP) Pulse Ox O2 Delivery O2 Flow Rate FiO2 03/22/25 10:04 96 14 91 Room Air* 0 21 03/22/25 09:22 97.9 127/83 (98) 97.9 General Appearance: Alert, Oriented X3, Cooperative, No acute distress HEENT: Atraumatic, PERRLA, EOMI, Mucous membr. moist/pink Respiratory: Clear to auscultation, Normal air movement Cardiovascular: Regular rate, Normal S1, Normal S2, No murmurs Abdominal: Normal bowel sounds, Soft, No tenderness, No hepatospenomegaly, No masses Extremities: No clubbing, No cyanosis, No edema, Normal pulses, No tenderness/swelling Skin: No significant lesion Neuro: Normal speech, Strength at 5/5 X4 ext, Normal tone, Sensation intact Psych/Mental Status: Mental status NL, Mood NL Labs/Xrays Labs Test 03/22/25 09:58 03/22/25 09:18 03/22/25 06:56 Range/Units Urine Color Yellow Yellow Urine Clarity Turbid H Clear Urine pH 5.5 5.0-9.0 Urine Specific [place] 1.023 1.001-1.035 Urine Protein 1+ H Negative Urine Ketones Trace Negative Urine Blood 3+ H Negative /uL Urine Nitrite Negative Negative Urine Bilirubin Negative Negative Urine Urobilinogen Normal Negative mg/dL Urine Leukocyte Esterase Negative Negative /uL Urine RBC 144 0 - 3 /hpf Urine Microscopic WBC 7 H 0-3 /HPF Urine Squamous Epithelial Cells Few <5 /hpf Urine Bacteria Few H None Seen /hpf Urine Hyaline Casts Few 0 - 2 /lpf Urine Mucus Few None Seen Urine Glucose Normal Normal mg/dL White Blood Count 11.3 H 4.4-10.8 10^3/uL Red Blood Count 5.27 4.5-5.90 10^6/uL Hemoglobin 14.9 13.5-17.5 g/dL Hematocrit 43.9 41.0-53.0 % Mean Corpuscular Volume 83.3 80.0-100.0 fL Mean Corpuscular Hemoglobin 28.2 28.0-32.0 pg Mean Corpuscular Hemoglobin Concent 33.9 32.0-36.0 g/dL Red Cell Distribution Width 14.2 11.8-14.3 % Platelet Count 308 140-450 10^3/uL Mean Platelet Volume 7.9 6.9-10.8 fL Neutrophils (%) (Auto) 73.3 37.0-80.0 % Lymphocytes (%) (Auto) 16.6 10.0-50.0 % Monocytes (%) (Auto) 7.2 0.0-12.0 % Eosinophils (%) (Auto) 2.5 0.0-7.0 % Basophils (%) (Auto) 0.4 0.0-2.0 % Neutrophils # (Auto) 8.3 1.6-8.6 10 ^3/uL Lymphocytes # (Auto) 1.9 0.4-5.4 10 ^3/uL Monocytes # (Auto) 0.8 0-1.3 10 ^3/uL Eosinophils # (Auto) 0.3 0-0.8 10 ^3/uL Basophils # (Auto) 0 0-0.2 10 ^3/uL Nucleated Red Blood Cells 0.0 % Sodium Level 138 136-145 mmol/L Potassium Level 3.4 L 3.5-5.1 mmol/L Chloride Level 102 98-107 mmol/L Carbon Dioxide Level 22 20-31 mmol/L Anion Gap 14 5-15 Blood Urea Nitrogen 18 9-23 mg/dL Creatinine 1.23 0.700-1.30 mg/dL Glomerular Filtration Rate Calc 69 >90 mL/min BUN/Creatinine Ratio 14.6 10.0-20.0 Serum Glucose 163 H 74-106 mg/dL Calcium Level 9.7 8.7-10.4 mg/dL EXAM: CT Abdomen and Pelvis Without Intravenous Contrast CLINICAL INDICATION: right flank pain TECHNIQUE: Axial computed tomography images of the abdomen and pelvis without intravenous contrast. This CT exam was performed using one or more of the following dose reduction techniques: automated exposure control, adjustment of the mA and/or kV according to patient size, and/or use of iterative reconstruction technique. CONTRAST: RADIATION DOSE: CTDIvol = 26.18 mGy, DLP = 1413.36 mGy-cm COMPARISON: CT CHST AB PEL WO CON-NO IV/ORAL on DOS: 05/12/23 FINDINGS: LUNG BASES: Unremarkable. No mass. No consolidation. MEDIASTINUM: Small esophageal hiatal hernia. ABDOMEN: LIVER: Fatty infiltration of the liver. GALLBLADDER AND BILE DUCTS: Cholecystectomy. No ductal dilation. PANCREAS: Unremarkable. No ductal dilation. SPLEEN: Splenic cysts. ADRENALS: Unremarkable. No mass. KIDNEYS AND URETERS: 4 mm obstructing calculus at the right mid ureter resulting in moderate hydroureteronephrosis. Punctate left nephrolithiasis without hydronephrosis. STOMACH AND BOWEL: Unremarkable. No obstruction. No mucosal thickening. PELVIS: APPENDIX: No findings to suggest acute appendicitis. BLADDER: Unremarkable. No stones. REPRODUCTIVE: Unremarkable as visualized. ABDOMEN and PELVIS: INTRAPERITONEAL SPACE: Unremarkable. No free air. No significant fluid collection. BONES/JOINTS: No acute fracture. No dislocation. SOFT TISSUES: Inguinal hernias, bilaterally. VASCULATURE: Unremarkable. No abdominal aortic aneurysm. LYMPH NODES: Unremarkable. No enlarged lymph nodes. OTHER FINDINGS: . . IMPRESSION: 1. 4 mm obstructing calculus at the right mid ureter resulting in moderate hydroureteronephrosis. 2. Small esophageal hiatal hernia. 3. Punctate left nephrolithiasis without hydronephrosis. 4. Inguinal hernias, bilaterally. Assessment/Plan Assessment/Plan Assessment Intractable right flank pain likely due to 4 mm obstructing calculus at the right mid ureter resulting in moderate hydroureteronephrosis Small esophageal hiatal hernia. Punctate left nephrolithiasis without hydronephrosis Bilateral Inguinal hernias Leukocytosis likely due to hydroureternephrosis Hypokalemia Obesity History of hypertension History of hyperlipidemia History of diabetes History of nephrolithiasis [facility] Flomax NS 1 L given ED Pain management Antiemetics CT abdomen and pelvis noted Hemoglobin A1c ISS and Accu-Cheks Lactic Urine culture Strain urine IV fluids Diet Home medications reconciled DVT prophylaxis-not indicated patient ambulating PUD prophylaxis-not indicated no history of GERD or GI bleed Discussed plan of care with patient, patient's spouse, and nurse Counseled patient on lifestyle modifications, diet, and exercise Plan discussed with: Patient, Spouse My Orders Orders - ANKUR MUÑOZ CONTRACT CLERK Procedure Category Date Status Time Lactic Acid W/ Reflex LAB 03/22/25 In Process Order 09:41 Ceftriaxone 1gm/50ml PHA 03/23/25 Logged D5w (Rocephin) 09:00 Sodium Chloride 0.9% PHA 03/22/25 Logged 10:45 Strain All Urine ED NURSING 03/22/25 Transmitted Urine Bacterial TARUN 03/22/25 Transmitted Culture 10:45 Lactic Acid W/ Reflex LAB 03/22/25 Transmitted Order 10:45 Hemoglobin A1c LAB 03/22/25 Transmitted 10:45 Glucose Blood PHA 03/22/25 Logged (Accu-Chek Comfort 11:30 Insulin R (Human) PHA 03/22/25 Logged (Insulin R) 11:30 Dextrose 50% Syringe PHA 03/22/25 Logged 10:45 Admit ADMIT 03/22/25 Transmitted 10:45 Allergies JOE 03/22/25 In Process 10:45 Code Status CODE 03/22/25 Transmitted 10:45 Hydrocodone-Acet PHA 03/22/25 Logged 5/325mg Tab ([place] 10:45 Ondansetron Hcl PHA 03/22/25 Logged (Zofran) 10:45 Complete Blood Count LAB 03/23/25 Verified 04:00 Comprehensive LAB 03/23/25 Verified Metabolic Panel 04:00 Cardiac DIET 03/22/25 Transmitted Diet-2gna,Lofat,Lochol Lunch Acetaminophen Tablet PHA 03/22/25 Logged (Tylenol Tablet) 10:45 Morphine Sulfate PHA 03/22/25 Transmitted Injection 10:45 Sequential JOE 03/22/25 In Process Compression Device Tamsulosin PHA 03/22/25 Transmitted Hydrochloride (Flomax) 18:00 Aspirin Enteric PHA 03/23/25 Verified Coated Tablet 10:00 Ergocalciferol PHA 03/22/25 Verified (Vitamin D 50,000 11:00 Hydrochlorothiazide PHA 03/23/25 Verified Tablet (Hydrochlorot 10:00 Losartan Tablet PHA 03/22/25 Verified (Cozaar Tablet) 22:00 Spironolactone PHA 03/23/25 Verified (Aldactone) 10:00 (Nf) Amlodipine PHA 03/23/25 Verified Besylate 10:00 (Nf) Atenolol PHA 03/22/25 Verified 22:00 (Nf) Atorvastatin PHA 03/23/25 Verified Calcium 10:00 Date of Service: March 22, 2025 Billing Provider: ANKUR MUÑOZ Common Visit Codes: [id number] INP/OBS CARE (HIGH) ANKUR MUÑOZ March 22, 2025 11:00
[2025-03-22] MEDS: InsuLIN REG 1unit/0.01ml Soln (100units/ml) SC SCH (11:30)
[2025-03-22] MEDS: ACCU-CHEK COMFORT CURVE STRIP VI SCH (11:38)
[2025-03-22] MEDS: SODIUM CHLORIDE 0.9% 1,000 ML IV SCH (11:42)
[2025-03-22] MEDS: POTASSIUM CHL 20 Meq TABLET PO ONE (11:42)
[2025-03-22] MEDS: TAMSULOSIN HYDROCHLORIDE 0.4 MG CAP PO SCH (17:37)
[2025-03-22] MEDS ORDERED: LOSARTAN POTASSIUM 50 MG TAB PO SCH (22:00)
[2025-03-22] MEDS ORDERED: ATENOLOL 25 MG TAB PO SCH (22:00)
[2025-03-23] MEDS ORDERED: cefTRIAXone 1GM/50ML D5W 50 ML IV SCH (09:00)
[2025-03-23] MEDS ORDERED: amLODIPine BESYLATE 5 MG TAB PO SCH (10:00)
[2025-03-23] MEDS ORDERED: SPIRONOLACTONE 25 MG TAB PO SCH (10:00)
[2025-03-23] MEDS ORDERED: ASPirin-EC 81 mg tab PO SCH (10:00)
[2025-03-23] MEDS ORDERED: hydroCHLOROthiazide 25 MG TAB PO SCH (10:00)
[2025-03-23] MEDS ORDERED: ATORVASTATIN 20 MG TAB PO SCH (10:00)
== END 2025-03-22 18:10 | disposition left against medical advice (07) | DRG 465 ==
LOC: ER 06:09 → OVERFLOW 10:45
DX: N13.2 Hydronephrosis with renal and ureteral calculous obstruction (principal); D72.829 Elevated white blood cell count, unspecified; E66.9 Obesity, unspecified; E11.9 Type 2 diabetes mellitus without complications; E78.5 Hyperlipidemia, unspecified; I10 Essential (primary) hypertension; Z68.39 Body mass index [BMI] 39.0-39.9, adult; K44.9 Diaphragmatic hernia without obstruction or gangrene; E87.6 Hypokalemia; K40.20 Bilateral inguinal hernia, without obstruction or gangrene, not specified as recurrent; Z53.29 Procedure and treatment not carried out because of patient's decision for other reasons; Z88.0 Allergy status to penicillin; Z90.49 Acquired absence of other specified parts of digestive tract; Z87.442 Personal history of urinary calculi; Z82.49 Family history of ischemic heart disease and other diseases of the circulatory system
CPT/HCPCS: 36415; 74176; 80048; 81001; 82962; 83036; 83605; 85025; 87086; 96361; 96374; 96375; 99291; G0378; J1815; J1885; J2405